=== PATIENT | male | born 1950 | race African-American/Black ===

== ENCOUNTER 2019-05-06 11:06 | Inpatient (IN) ==
[2019-05-06] MEDS ORDERED: SODIUM CHLORIDE 0.9% 1,000 ML IV STA ×2 (12:34→14:21)
[2019-05-06 13:15] LABS: Basophils % 0.2 % (0.0-0.8); Eosinophils % 0.4 % (0.00-10.9); Hemoglobin 13.9 GM/DL (14.0-18.0); Immature Granulocytes % 0.2 %; Immature Granulocytes Absolute 0.01 #; Lymphocytes # 1.6 10*3/uL (1.4-4.0); Lymphocytes % 33.3 % (21.2-54.2); Mean Corpuscular HGB Conc 31.6 GM/DL (32-36); Mean Corpuscular Volume 99.3 FL (87-102); Mean Platelet Volume 11.1 FL (9.6-12.0); Monocytes % 8.1 % (1.7-12.7); Neutrophils % 57.8 % (38.7-73.9); Platelet Count 104 T/CUMM (130-400); Red Blood Count 4.43 MC/CUMM (3.8-5.5); Red Cell Distribution Width 11.4 % (9.3-17.3); White Blood Count 4.8 T/CUMM (4-12)
[2019-05-06 13:23] LABS: PT Patient Result 11.1 SECS (9.6-12.2)
[2019-05-06 14:12] LABS: Alanine Aminotransferase 87 U/L (16-61); Albumin 3.6 G/DL (3.4-5.0); Alkaline Phosphatase 46 U/L (45-117); Aspartate Amino Transferase 706 U/L (0-37); Blood Urea Nitrogen 51 MG/DL (7-18); Calcium 8.4 MG/DL (8.5-10.1); Estimated Glom Filtration Rate 8 ML/MIN; Glucose 104 MG/DL (74-106); Osmolality,Calculated 281.2 MOS/KG (273-304); Total Protein 7.9 G/DL (6.4-8.3)
[2019-05-06 15:22] LABS: Amorphous Crystals,Urine Occasional /HPF (Few); Apearance,Urine CLOUDY (Clear); Bacteria,Urine Many /HPF (Few); Bilirubin,Urine Negative (Negative); Blood, Urine Large mg/dL (Negative); Glucose,Urine (UA) 50 mg/dL (Negative); Ketones,Urine Negative (Negative); Nitrite,Urine Negative (Negative); Protein,Urine 100 MG/DL; RBC,Urine 18 /HPF (0-4); Sperm,Urine Many /HPF (Negative); Squamous Epithelial Cell,Urine Occasional /HPF (0-10); Urine Color Amber (Yellow); Urine Specific Gravity 1.017 (1.001-1.035); Urine Urobilinogen < 2.0 EU/DL (0.2-1.0)
[2019-05-06] MEDS ORDERED: MORPHINE 4 MG/1 ML VIAL IV PRN (15:44)
[2019-05-06] MEDS ORDERED: DOCUSATE SODIUM 100 MG CAPSULE PO PRN (15:44)
[2019-05-06] MEDS ORDERED: ONDANSETRON 4 MG/2 ML VIAL IV PRN (15:44)
[2019-05-06] MEDS ORDERED: SODIUM CHLORIDE 0.9% 1,000 ML IV SCH (16:00)
[2019-05-06 16:21] LABS: Risk Ratio 5.03; Thyroid Stimulating Hormone 0.7 uIU/ml (0.358-3.74); VLDL CHOLESTEROL 48.6 MG/DL
[2019-05-06] MEDS: HEPARIN 5,000 UNIT/1 ML VIAL SUBCUT SCH (16:26)
[2019-05-06] MEDS ORDERED: NITROGLYCERIN SL 0.4 MG TABLET SL PRN (16:40)
[2019-05-06] MEDS ORDERED: SODIUM CHLORIDE 0.9% 500 ML IV ONE (17:04)
[2019-05-06] MEDS: NICOTINE 21 MG/24 HR PATCH TRANSDERM SCH (18:53)
[2019-05-06] MEDS ORDERED: MANNITOL IV SCH (20:00)
[2019-05-06] MEDS ORDERED: DEXTROSE 5% IV SCH (20:00)
[2019-05-06] MEDS ORDERED: SODIUM BICARB IV SCH (20:00)
[2019-05-06] MEDS: allopurinoL 300 MG TABLET PO SCH (20:59)
[2019-05-06] MEDS: ACETAMINOPHEN 325 MG TABLET PO PRN (20:59)
[2019-05-07] MEDS: HEPARIN 5,000 UNIT/1 ML VIAL SUBCUT SCH ×3 (00:19→16:57)
[2019-05-07 06:14] LABS: Basophils % 0.3 % (0.0-0.8); Eosinophils # 0.1 10*3/uL (0.0-0.87); Eosinophils % 1.6 % (0.00-10.9); Hematocrit 32.3 VOL% (42.0-52.0); Hemoglobin 10.5 GM/DL (14.0-18.0); Immature Granulocytes % 0.3 %; Immature Granulocytes Absolute 0.01 #; Lymphocytes # 1.5 10*3/uL (1.4-4.0); Lymphocytes % 39.6 % (21.2-54.2); Mean Corpuscular HGB Conc 32.5 GM/DL (32-36); Mean Corpuscular Volume 97.6 FL (87-102); Monocytes % 5.3 % (1.7-12.7); Neutrophils % 52.9 % (38.7-73.9); Red Blood Count 3.31 MC/CUMM (3.8-5.5); Red Cell Distribution Width 11.3 % (9.3-17.3); White Blood Count 3.8 T/CUMM (4-12)
[2019-05-07 06:17] LABS: Platelet Count 96 T/CUMM (130-400)
[2019-05-07 06:41] LABS: Calcium 6.8 MG/DL (8.5-10.1); Osmolality,Calculated 283.4 MOS/KG (273-304)
[2019-05-07] MEDS: SODIUM CHLORIDE 0.9% 1,000 ML IV SCH ×2 (07:52→22:38)
[2019-05-07] MEDS: ASPIRIN CHEW 81 MG TABLET PO SCH (08:13)
[2019-05-07] MEDS: NICOTINE 21 MG/24 HR PATCH TRANSDERM SCH (08:14)
[2019-05-07] MEDS: PANTOPRAZOLE 40 MG TABLET PO SCH (08:14)
[2019-05-07] MEDS ORDERED: SODIUM CHLORIDE 0.9% 1,000 ML IV ONE (08:32)
[2019-05-07] MEDS: methylPREDNISolone SOD SUC 40 MG/1 ML VIAL IV SCH ×2 (09:44→17:07)
[2019-05-07] MEDS: risperiDONE 1 MG TABLET PO SCH ×2 (09:55→22:40)
[2019-05-07] MEDS ORDERED: MANNITOL IV SCH (10:00)
[2019-05-07] MEDS ORDERED: SODIUM BICARB IV SCH (10:00)
[2019-05-07] MEDS ORDERED: DEXTROSE 5% IV SCH (10:00)
[2019-05-07] MEDS ORDERED: SODIUM BICARB INJ 150 MEQ in DEXTROSE 5% 1,000 ML IV SCH (19:00)
[2019-05-07] MEDS: allopurinoL 300 MG TABLET PO SCH (22:40)
[2019-05-08] MEDS: SODIUM CHLORIDE 0.9% 1,000 ML IV SCH ×2 (00:47→05:00)
[2019-05-08] MEDS: methylPREDNISolone SOD SUC 40 MG/1 ML VIAL IV SCH ×3 (00:48→20:55)
[2019-05-08] MEDS: HEPARIN 5,000 UNIT/1 ML VIAL SUBCUT SCH ×4 (00:48→23:56)
[2019-05-08 07:13] LABS: Hemoglobin 11.6 GM/DL (14.0-18.0); Immature Granulocytes % 0.4 %; Immature Granulocytes Absolute 0.01 #; Lymphocytes # 1.1 10*3/uL (1.4-4.0); Mean Corpuscular HGB Conc 34.1 GM/DL (32-36); Mean Corpuscular Volume 93.7 FL (87-102); Mean Platelet Volume 11.4 FL (9.6-12.0); Monocytes % 5.5 % (1.7-12.7); Neutrophils % 54.1 % (38.7-73.9); Red Blood Count 3.63 MC/CUMM (3.8-5.5); Red Cell Distribution Width 11.1 % (9.3-17.3); White Blood Count 2.8 T/CUMM (4-12)
[2019-05-08 07:15] LABS: Platelet Count 88 T/CUMM (130-400)
[2019-05-08 07:30] LABS: Calcium 6.7 MG/DL (8.5-10.1); Osmolality,Calculated 283.7 MOS/KG (273-304)
[2019-05-08] MEDS ORDERED: hydrALAZINE 20 MG/1 ML VIAL IV PRN (07:30)
[2019-05-08 07:31] LABS: Hypochromasia 1+; Platelet Estimate Decreased
[2019-05-08] MEDS ORDERED: SODIUM CHLORIDE 0.9% 1,000 ML IV SCH (08:30)
[2019-05-08] MEDS: ASPIRIN CHEW 81 MG TABLET PO SCH (10:03)
[2019-05-08] MEDS: PANTOPRAZOLE 40 MG TABLET PO SCH (10:03)
[2019-05-08] MEDS: NICOTINE 21 MG/24 HR PATCH TRANSDERM SCH (10:04)
[2019-05-08] MEDS: risperiDONE 1 MG TABLET PO SCH ×2 (10:50→20:55)
[2019-05-08] MEDS ORDERED: SODIUM BICARB INJ 150 MEQ in DEXTROSE 5% 850 ML IV SCH (12:00)
[2019-05-08] MEDS: SODIUM BICARB INJ 150 MEQ in DEXTROSE 5% 850 ML IV SCH ×2 (13:01→18:58)
[2019-05-08] MEDS: allopurinoL 300 MG TABLET PO SCH (20:55)
[2019-05-09] MEDS: SODIUM BICARB INJ 150 MEQ in DEXTROSE 5% 850 ML IV SCH ×2 (02:00→09:38)
[2019-05-09 07:53] LABS: Basophils % 0.1 % (0.0-0.8); Hematocrit 29.3 VOL% (42.0-52.0); Hemoglobin 10.1 GM/DL (14.0-18.0); Immature Granulocytes % 0.5 %; Immature Granulocytes Absolute 0.04 #; Lymphocytes # 1.6 10*3/uL (1.4-4.0); Lymphocytes % 17.9 % (21.2-54.2); Mean Corpuscular HGB Conc 34.5 GM/DL (32-36); Mean Corpuscular Volume 91.6 FL (87-102); Mean Platelet Volume 11.9 FL (9.6-12.0); Monocytes % 4.4 % (1.7-12.7); Neutrophils % 77.1 % (38.7-73.9); Platelet Count 91 T/CUMM (130-400); Red Cell Distribution Width 10.9 % (9.3-17.3); White Blood Count 8.6 T/CUMM (4-12)
[2019-05-09 08:12] LABS: Platelet Estimate Decreased
[2019-05-09 08:13] LABS: Anisocytosis 1+; Calcium 6.4 MG/DL (8.5-10.1); Osmolality,Calculated 294.1 MOS/KG (273-304)
[2019-05-09] MEDS ORDERED: MAGNESIUM SULF RIDER 4 GM in PREMIX 1 EACH IV PRN (08:39)
[2019-05-09] MEDS: NICOTINE 21 MG/24 HR PATCH TRANSDERM SCH (09:37)
[2019-05-09] MEDS: risperiDONE 1 MG TABLET PO SCH ×2 (09:37→20:48)
[2019-05-09] MEDS: HEPARIN 5,000 UNIT/1 ML VIAL SUBCUT SCH ×2 (09:37→16:33)
[2019-05-09] MEDS: ASPIRIN CHEW 81 MG TABLET PO SCH (09:38)
[2019-05-09] MEDS: PANTOPRAZOLE 40 MG TABLET PO SCH (09:38)
[2019-05-09] MEDS: methylPREDNISolone SOD SUC 40 MG/1 ML VIAL IV SCH ×2 (09:39→15:14)
[2019-05-09] MEDS: MAGNESIUM SULF RIDER 2 GM in PREMIX 1 EACH IV PRN (11:09)
[2019-05-09] MEDS: POTASSIUM CHLORIDE RIDER 10 MEQ in PREMIX 1 EACH IV PRN ×4 (12:56→16:15)
[2019-05-09] MEDS: allopurinoL 300 MG TABLET PO SCH (20:48)
[2019-05-10] MEDS: HEPARIN 5,000 UNIT/1 ML VIAL SUBCUT SCH ×3 (01:21→15:54)
[2019-05-10] MEDS: methylPREDNISolone SOD SUC 40 MG/1 ML VIAL IV SCH ×2 (02:55→15:53)
[2019-05-10 04:50] LABS: Hematocrit 31.1 VOL% (42.0-52.0); Hemoglobin 10.1 GM/DL (14.0-18.0); Mean Corpuscular HGB Conc 32.5 GM/DL (32-36); Mean Corpuscular Volume 96.9 FL (87-102); Mean Platelet Volume 13.2 FL (9.6-12.0); Red Blood Count 3.21 MC/CUMM (3.8-5.5); Red Cell Distribution Width 11.2 % (9.3-17.3); White Blood Count 9.4 T/CUMM (4-12)
[2019-05-10 04:51] LABS: Basophils % 0.3 % (0.0-0.8); Eosinophils % 0.1 % (0.00-10.9); Immature Granulocytes % 0.6 %; Immature Granulocytes Absolute 0.06 #; Lymphocytes # 1.7 10*3/uL (1.4-4.0); Lymphocytes % 18.1 % (21.2-54.2); NRBC # 0.05 10*3/uL; Neutrophils % 73.9 % (38.7-73.9)
[2019-05-10 05:07] LABS: Platelet Count 74 T/CUMM (130-400)
[2019-05-10 05:10] LABS: Hypochromasia 1+; Ovalocytes Slight; Platelet Estimate Decreased
[2019-05-10 05:50] LABS: Blood Urea Nitrogen 71 MG/DL (7-18); Calcium 6.8 MG/DL (8.5-10.1); Estimated Glom Filtration Rate 7 ML/MIN; Glucose 148 MG/DL (74-106); Osmolality,Calculated 300.5 MOS/KG (273-304)
[2019-05-10] MEDS: NICOTINE 21 MG/24 HR PATCH TRANSDERM SCH (09:16)
[2019-05-10] MEDS: PANTOPRAZOLE 40 MG TABLET PO SCH (09:17)
[2019-05-10] MEDS: ASPIRIN CHEW 81 MG TABLET PO SCH (09:17)
[2019-05-10] MEDS: risperiDONE 1 MG TABLET PO SCH ×2 (09:17→20:15)
[2019-05-10 14:08] LABS: Total Protein 24 Hr Ur Result 1295 MG/24HR (0-149.1); Total Volume,Urine 1825 ML (400-2000)
[2019-05-10] MEDS ORDERED: ALBUTEROL/IPRATROPIUM 3 ML NEB RESP TX ONE (15:13)
[2019-05-10] MEDS ORDERED: FUROSEMIDE 20 MG/2 ML VIAL IV ONE (15:14)
[2019-05-10] MEDS: ALBUTEROL/IPRATROPIUM 3 ML NEB RESP TX SCH (19:17)
[2019-05-10] MEDS: allopurinoL 300 MG TABLET PO SCH (20:15)
[2019-05-11] MEDS: HEPARIN 5,000 UNIT/1 ML VIAL SUBCUT SCH ×4 (00:21→23:38)
[2019-05-11] MEDS: ALBUTEROL/IPRATROPIUM 3 ML NEB RESP TX SCH ×7 (00:25→23:41)
[2019-05-11] MEDS: methylPREDNISolone SOD SUC 40 MG/1 ML VIAL IV SCH ×2 (01:51→14:54)
[2019-05-11 07:07] LABS: Calcium 6.7 MG/DL (8.5-10.1); Osmolality,Calculated 311.1 MOS/KG (273-304)
[2019-05-11] MEDS: NICOTINE 21 MG/24 HR PATCH TRANSDERM SCH (09:03)
[2019-05-11] MEDS: ASPIRIN CHEW 81 MG TABLET PO SCH (09:03)
[2019-05-11] MEDS: risperiDONE 1 MG TABLET PO SCH ×2 (09:04→20:55)
[2019-05-11] MEDS: PANTOPRAZOLE 40 MG TABLET PO SCH (09:04)
[2019-05-11] MEDS: allopurinoL 300 MG TABLET PO SCH (20:55)
[2019-05-12] MEDS: methylPREDNISolone SOD SUC 40 MG/1 ML VIAL IV SCH ×2 (02:50→15:38)
[2019-05-12] MEDS: ALBUTEROL/IPRATROPIUM 3 ML NEB RESP TX SCH ×6 (03:19→23:55)
[2019-05-12 05:40] LABS: Albumin 2.3 G/DL (3.4-5.0); Bilirubin,Total 0.8 MG/DL (0.2-1.0); Calcium 7.1 MG/DL (8.5-10.1); Total Protein 5.4 G/DL (6.4-8.3)
[2019-05-12 06:23] LABS: 24 Hr Protein (Bench) 1295 MG/24HR (0-149.1)
[2019-05-12 06:24] LABS: Basophils % 0.1 % (0.0-0.8); Eosinophils % 0.1 % (0.00-10.9); Hematocrit 22.4 VOL% (42.0-52.0); Immature Granulocytes % 2.6 %; Immature Granulocytes Absolute 0.34 #; Mean Corpuscular Volume 96.6 FL (87-102); Monocytes % 14.7 % (1.7-12.7); Neutrophils % 67.5 % (38.7-73.9); Red Cell Distribution Width 11.3 % (9.3-17.3)
[2019-05-12 06:31] LABS: White Blood Count 13.3 T/CUMM (4-12)
[2019-05-12 06:32] LABS: Hemoglobin 7.4 GM/DL (14.0-18.0); Platelet Count 166 T/CUMM (130-400); Red Blood Count 2.32 MC/CUMM (3.8-5.5)
[2019-05-12 06:46] LABS: Hypochromasia 2+; Lymphocytes 19 % (20-55); Metamyelocytes 2 %; Nucleated Red Blood Cells 1 (0-5); Platelet Estimate Normal; Segmented Neutrophils 68 % (50-85); Total Cells Counted 100
[2019-05-12 06:47] LABS: Anisocytosis 1+; Macrocytosis 1+
[2019-05-12] MEDS: ASPIRIN CHEW 81 MG TABLET PO SCH (09:10)
[2019-05-12] MEDS: HEPARIN 5,000 UNIT/1 ML VIAL SUBCUT SCH ×2 (09:10→17:45)
[2019-05-12] MEDS: NICOTINE 21 MG/24 HR PATCH TRANSDERM SCH (09:10)
[2019-05-12] MEDS: PANTOPRAZOLE 40 MG TABLET PO SCH (09:11)
[2019-05-12] MEDS: risperiDONE 1 MG TABLET PO SCH ×2 (09:11→21:15)
[2019-05-12 09:19] LABS: % Iron Saturation 43.8 % (18-50); Ferritin 1542.6 ng/ml (26-388)
[2019-05-12 09:31] LABS: Hematocrit 21.1 VOL% (42.0-52.0); Hemoglobin 7.1 GM/DL (14.0-18.0)
[2019-05-12 09:36] LABS: Folate 6.2 NG/ML (5.4-24.0)
[2019-05-12] MEDS ORDERED: SODIUM CHLORIDE 0.9% 1,000 ML IV PRN (10:51)
[2019-05-12 13:03] LABS: Apearance,Urine CLEAR (Clear); Bilirubin,Urine Negative (Negative); Blood, Urine Moderate mg/dL (Negative); Glucose,Urine (UA) 50 mg/dL (Negative); Ketones,Urine Negative (Negative); Nitrite,Urine Negative (Negative); Protein,Urine 30 MG/DL; RBC,Urine 20 /HPF (0-4); Urine Color Yellow (Yellow); Urine Specific Gravity 1.013 (1.001-1.035); Urine Urobilinogen < 2.0 EU/DL (0.2-1.0); WBC,Urine 2 /HPF (0-6)
[2019-05-12] MEDS: allopurinoL 300 MG TABLET PO SCH (21:15)
[2019-05-12 22:50] LABS: Hematocrit 24.9 VOL% (42.0-52.0); Hemoglobin 8.2 GM/DL (14.0-18.0)
[2019-05-13] MEDS: methylPREDNISolone SOD SUC 40 MG/1 ML VIAL IV SCH ×2 (02:36→14:37)
[2019-05-13] MEDS: ALBUTEROL/IPRATROPIUM 3 ML NEB RESP TX SCH ×6 (02:38→20:16)
[2019-05-13 04:48] LABS: Basophils % 0.1 % (0.0-0.8); Hematocrit 23.6 VOL% (42.0-52.0); Hemoglobin 7.7 GM/DL (14.0-18.0); Immature Granulocytes % 3.3 %; Immature Granulocytes Absolute 0.45 #; Lymphocytes # 1.7 10*3/uL (1.4-4.0); Lymphocytes % 12.3 % (21.2-54.2); Mean Corpuscular HGB Conc 32.6 GM/DL (32-36); Mean Corpuscular Volume 94.4 FL (87-102); Monocytes % 11.6 % (1.7-12.7); NRBC # 0.15 10*3/uL; Neutrophils % 72.7 % (38.7-73.9); Platelet Count 175 T/CUMM (130-400); Red Cell Distribution Width 13.8 % (9.3-17.3); White Blood Count 13.6 T/CUMM (4-12)
[2019-05-13 05:13] LABS: Hypochromasia 1+; Platelet Estimate Adequate
[2019-05-13 05:21] LABS: Calcium 7.6 MG/DL (8.5-10.1); Osmolality,Calculated 305.5 MOS/KG (273-304)
[2019-05-13] MEDS: SODIUM CHLORIDE 0.9% 1,000 ML IV SCH (06:50)
[2019-05-13] MEDS ORDERED: ALBUTEROL/IPRATROPIUM 3 ML NEB RESP TX ONE (07:51)
[2019-05-13] MEDS ORDERED: propofoL 200 MG/20 ML VIAL IV ONE (09:21)
[2019-05-13] MEDS ORDERED: LIDOCAINE 100 MG/5 ML SYRINGE ONE (09:21)
[2019-05-13] MEDS: ASPIRIN CHEW 81 MG TABLET PO SCH (10:40)
[2019-05-13] MEDS: PANTOPRAZOLE 40 MG TABLET PO SCH (10:40)
[2019-05-13] MEDS: risperiDONE 1 MG TABLET PO SCH ×2 (10:40→21:16)
[2019-05-13] MEDS: NICOTINE 21 MG/24 HR PATCH TRANSDERM SCH (10:40)
[2019-05-13] MEDS: allopurinoL 300 MG TABLET PO SCH (21:16)
[2019-05-14] MEDS: ALBUTEROL/IPRATROPIUM 3 ML NEB RESP TX SCH ×6 (01:06→21:40)
[2019-05-14] MEDS: methylPREDNISolone SOD SUC 40 MG/1 ML VIAL IV SCH (02:30)
[2019-05-14 05:40] LABS: Basophils % 0.2 % (0.0-0.8); Eosinophils % 0.2 % (0.00-10.9); Hematocrit 23.6 VOL% (42.0-52.0); Hemoglobin 7.7 GM/DL (14.0-18.0); Immature Granulocytes % 4.5 %; Immature Granulocytes Absolute 0.65 #; Lymphocytes # 1.3 10*3/uL (1.4-4.0); Lymphocytes % 8.7 % (21.2-54.2); Mean Corpuscular HGB Conc 32.6 GM/DL (32-36); Mean Corpuscular Volume 95.5 FL (87-102); Monocytes % 9.9 % (1.7-12.7); NRBC # 0.22 10*3/uL; Neutrophils % 76.5 % (38.7-73.9); Platelet Count 192 T/CUMM (130-400); Red Blood Count 2.47 MC/CUMM (3.8-5.5); Red Cell Distribution Width 13.9 % (9.3-17.3); White Blood Count 14.6 T/CUMM (4-12)
[2019-05-14 05:55] LABS: Calcium 7.8 MG/DL (8.5-10.1); Osmolality,Calculated 310.3 MOS/KG (273-304)
[2019-05-14 07:19] LABS: Band Neutrophils 2 % (0-10); Lymphocytes 8 % (20-55); Nucleated Red Blood Cells 1 (0-5); Platelet Estimate Normal; Segmented Neutrophils 85 % (50-85); Total Cells Counted 100
[2019-05-14 07:20] LABS: Polychromasia 1+
[2019-05-14 07:22] LABS: Stomatocytes Slight; Target Cells Few
[2019-05-14] MEDS: NICOTINE 21 MG/24 HR PATCH TRANSDERM SCH (08:59)
[2019-05-14] MEDS: PANTOPRAZOLE 40 MG TABLET PO SCH (08:59)
[2019-05-14] MEDS: risperiDONE 1 MG TABLET PO SCH ×2 (08:59→22:00)
[2019-05-14] MEDS: ASPIRIN CHEW 81 MG TABLET PO SCH (08:59)
[2019-05-14] MEDS: SODIUM CHLORIDE 0.9% 1,000 ML IV SCH (10:16)
[2019-05-14] MEDS: allopurinoL 300 MG TABLET PO SCH (22:00)
[2019-05-15] MEDS: ALBUTEROL/IPRATROPIUM 3 ML NEB RESP TX SCH ×6 (00:33→19:50)
[2019-05-15 05:39] LABS: Osmolality,Calculated 304.5 MOS/KG (273-304)
[2019-05-15 08:21] LABS: Basophils % 0.1 % (0.0-0.8); Eosinophils # 0.2 10*3/uL (0.0-0.87); Eosinophils % 1.8 % (0.00-10.9); Hematocrit 22.2 VOL% (42.0-52.0); Hemoglobin 6.9 GM/DL (14.0-18.0); Immature Granulocytes % 4.4 %; Immature Granulocytes Absolute 0.51 #; Lymphocytes # 1.2 10*3/uL (1.4-4.0); Lymphocytes % 10.3 % (21.2-54.2); Mean Corpuscular HGB Conc 31.1 GM/DL (32-36); Mean Corpuscular Volume 98.7 FL (87-102); Mean Platelet Volume 11.2 FL (9.6-12.0); Monocytes % 8.5 % (1.7-12.7); NRBC # 0.15 10*3/uL; Neutrophils % 74.9 % (38.7-73.9); Platelet Count 189 T/CUMM (130-400); Red Blood Count 2.25 MC/CUMM (3.8-5.5); Red Cell Distribution Width 14.4 % (9.3-17.3); White Blood Count 11.7 T/CUMM (4-12)
[2019-05-15] MEDS: NICOTINE 21 MG/24 HR PATCH TRANSDERM SCH (09:18)
[2019-05-15] MEDS: PANTOPRAZOLE 40 MG TABLET PO SCH ×2 (09:18→21:34)
[2019-05-15] MEDS: risperiDONE 1 MG TABLET PO SCH ×2 (09:18→21:34)
[2019-05-15] MEDS: ASPIRIN CHEW 81 MG TABLET PO SCH (09:18)
[2019-05-15 09:31] LABS: Band Neutrophils 2 % (0-10); Eosinophils 2 % (0-10); Lymphocytes 8 % (20-55); Platelet Estimate Normal; Segmented Neutrophils 84 % (50-85); Total Cells Counted 100
[2019-05-15 09:32] LABS: Anisocytosis 1+; Macrocytosis 1+; Polychromasia 1+; Smudge Cells Few
[2019-05-15] MEDS ORDERED: SODIUM CHLORIDE 0.9% 1,000 ML IV PRN (14:01)
[2019-05-15] MEDS ORDERED: hydrALAZINE 20 MG/1 ML VIAL IV ONE (16:05)
[2019-05-15] MEDS ORDERED: amLODIPine 5 MG TABLET PO ONE (17:44)
[2019-05-15] MEDS ORDERED: LABETALOL 20 MG/4 ML SYRINGE IV ONE (19:01)
[2019-05-15] MEDS ORDERED: LABETALOL 20 MG/4 ML SYRINGE IV PRN (19:03)
[2019-05-15] MEDS ORDERED: cloNIDine 0.3 MG/24 HR PATCH TRANSDERM SCH (19:30)
[2019-05-15] MEDS: ACETAMINOPHEN 325 MG TABLET PO PRN (21:33)
[2019-05-15] MEDS: allopurinoL 300 MG TABLET PO SCH (21:34)
[2019-05-16] MEDS: ALBUTEROL/IPRATROPIUM 3 ML NEB RESP TX SCH ×6 (00:10→19:07)
[2019-05-16] MEDS: amLODIPine 5 MG TABLET PO SCH (08:44)
[2019-05-16] MEDS: PANTOPRAZOLE 40 MG TABLET PO SCH ×2 (08:44→20:58)
[2019-05-16] MEDS: risperiDONE 1 MG TABLET PO SCH ×2 (08:44→20:58)
[2019-05-16] MEDS: ASPIRIN CHEW 81 MG TABLET PO SCH (08:44)
[2019-05-16] MEDS: NICOTINE 21 MG/24 HR PATCH TRANSDERM SCH (08:44)
[2019-05-16] MEDS ORDERED: amLODIPine 5 MG TABLET PO SCH (09:00)
[2019-05-16 09:30] LABS: Basophils % 0.1 % (0.0-0.8); Eosinophils # 0.2 10*3/uL (0.0-0.87); Eosinophils % 1.3 % (0.00-10.9); Hematocrit 30.5 VOL% (42.0-52.0); Immature Granulocytes % 1.4 %; Mean Corpuscular HGB Conc 32.5 GM/DL (32-36); NRBC # 0.04 10*3/uL
[2019-05-16 09:39] LABS: Immature Granulocytes Absolute 0.19 #; Lymphocytes # 0.8 10*3/uL (1.4-4.0); Lymphocytes % 5.9 % (21.2-54.2); Mean Corpuscular Volume 93.8 FL (87-102); Mean Platelet Volume 10.7 FL (9.6-12.0); Monocytes % 5.9 % (1.7-12.7); Neutrophils % 85.4 % (38.7-73.9); Platelet Count 158 T/CUMM (130-400); White Blood Count 13.7 T/CUMM (4-12)
[2019-05-16 09:47] LABS: Hemoglobin 9.9 GM/DL (14.0-18.0); Red Blood Count 3.25 MC/CUMM (3.8-5.5)
[2019-05-16 10:02] LABS: Calcium 7.9 MG/DL (8.5-10.1); Osmolality,Calculated 304.5 MOS/KG (273-304)
[2019-05-16] MEDS: MAGNESIUM SULF RIDER 2 GM in PREMIX 1 EACH IV PRN (10:34)
[2019-05-16] MEDS ORDERED: SODIUM POLYSTYRENE SULFATE 15 GM/60 ML BOTTLE PO STA (12:42)
[2019-05-16] MEDS: allopurinoL 300 MG TABLET PO SCH (20:58)
[2019-05-16] MEDS: ACETAMINOPHEN 325 MG TABLET PO PRN (23:15)
[2019-05-17] MEDS: ALBUTEROL/IPRATROPIUM 3 ML NEB RESP TX SCH ×7 (00:11→23:38)
[2019-05-17 06:07] LABS: Calcium 7.7 MG/DL (8.5-10.1)
[2019-05-17 08:17] LABS: Hematocrit 29.5 VOL% (42.0-52.0); Hemoglobin 9.4 GM/DL (14.0-18.0)
[2019-05-17] MEDS: NICOTINE 21 MG/24 HR PATCH TRANSDERM SCH (09:11)
[2019-05-17] MEDS: ASPIRIN CHEW 81 MG TABLET PO SCH (09:11)
[2019-05-17] MEDS: PANTOPRAZOLE 40 MG TABLET PO SCH ×2 (09:11→21:27)
[2019-05-17] MEDS: amLODIPine 5 MG TABLET PO SCH (09:11)
[2019-05-17] MEDS: risperiDONE 1 MG TABLET PO SCH (09:11)
[2019-05-17] MEDS ORDERED: risperiDONE 1 MG TABLET PO SCH (09:48)
[2019-05-17 10:09] LABS: Basophils % 0.1 % (0.0-0.8); Eosinophils # 0.2 10*3/uL (0.0-0.87); Eosinophils % 1.3 % (0.00-10.9); Hematocrit 29.6 VOL% (42.0-52.0); Hemoglobin 9.6 GM/DL (14.0-18.0); Immature Granulocytes % 0.9 %; Lymphocytes % 8.4 % (21.2-54.2); Mean Corpuscular HGB Conc 32.4 GM/DL (32-36); Mean Corpuscular Volume 94.6 FL (87-102); Mean Platelet Volume 11.2 FL (9.6-12.0); Monocytes % 4.5 % (1.7-12.7); Neutrophils % 84.8 % (38.7-73.9); Platelet Count 161 T/CUMM (130-400); Red Blood Count 3.13 MC/CUMM (3.8-5.5); Red Cell Distribution Width 15.7 % (9.3-17.3); White Blood Count 11.7 T/CUMM (4-12)
[2019-05-17] MEDS: CLINDAMYCIN 300 MG CAPSULE PO SCH ×2 (13:28→18:07)
[2019-05-17] MEDS ORDERED: TUBERCULIN SKIN TEST 0.1 ML SYRINGE INTRADERM ONE (13:49)
[2019-05-17] MEDS: LEVOFLOXACIN 750 MG TABLET PO SCH (15:11)
[2019-05-17 15:18] LABS: Apearance,Urine CLEAR (Clear); Bilirubin,Urine Negative (Negative); Blood, Urine Negative (Negative); Glucose,Urine (UA) Negative (Negative); Ketones,Urine Negative (Negative); Nitrite,Urine Negative (Negative); Protein,Urine 30 MG/DL; RBC,Urine 1 /HPF (0-4); Squamous Epithelial Cell,Urine Occasional /HPF (0-10); Urine Color Yellow (Yellow); Urine Specific Gravity 1.015 (1.001-1.035); WBC,Urine 1 /HPF (0-6)
[2019-05-17] MEDS: allopurinoL 300 MG TABLET PO SCH (21:27)
[2019-05-18] MEDS: CLINDAMYCIN 300 MG CAPSULE PO SCH ×3 (00:06→11:06)
[2019-05-18] MEDS: ALBUTEROL/IPRATROPIUM 3 ML NEB RESP TX SCH ×3 (03:48→11:04)
[2019-05-18] MEDS: ASPIRIN CHEW 81 MG TABLET PO SCH (09:32)
[2019-05-18] MEDS: amLODIPine 5 MG TABLET PO SCH (09:32)
[2019-05-18] MEDS: PANTOPRAZOLE 40 MG TABLET PO SCH (09:32)
[2019-05-18] MEDS: NICOTINE 21 MG/24 HR PATCH TRANSDERM SCH (09:33)
[2019-05-18 12:24] VITALS: BP 127/67
[2019-05-18] MEDS: LEVOFLOXACIN 750 MG TABLET PO SCH (12:54)
== END 2019-05-18 13:36 | DRG 682 ==
LOC: N.ED 11:06 → SUATTDRO 15:44 → N.EDINP 15:44 → N.TELEN 16:39
PROVIDERS: ADMIT Internal Medicine; ATTEND Internal Medicine